=== PATIENT | female | born 1990 | race Caucasian/White ===

== ENCOUNTER 2022-03-14 17:46 | Emergency (ER) | payer BC ==
[~2022-03-14] VITALS: Ht 162.6 cm; Wt 87.1 kg
[2022-03-14 18:16] VITALS: BP_SYST 146
--- NOTE | 2022-03-14 20:29 | NUR ---
Pt brought by self, A&Ox4, pt presents to ER with mild SOB and back pain,no chest retractions noted, pt denies chest pain at this time, skin pink and warm, cap refill <3, VSS, will cont to monitor.
--- NOTE | 2022-03-14 22:10 | NUR ---
Patient to ER bed 04 to gown for evaluation. Side rails up. Report given to MATTHEW QURESHI
--- NOTE | 2022-03-14 22:15 | NUR ---
LINDA Perales at bedside examining patient.
[2022-03-14 23:57] LABS: EOSINOPHILS # (AUTO) 0.6 K/uL (0.0-0.4); EOSINOPHILS % (AUTO) 8.7 % (0.0-4.0); HEMATOCRIT 37.2 % (36-48); HEMOGLOBIN 12.7 g/dL (12.0-16.0); LYMPHOCYTES # (AUTO) 2.5 K/uL (1.0-5.5); LYMPHOCYTES % (AUTO) 35.5 % (20.5-51.5); MEAN CORPUSCULAR HEMOGLOBIN 29 pg (27-31); MEAN CORPUSCULAR HGB CONC 34 % (32-36); MEAN CORPUSCULAR VOLUME 83 fL (79.0-98.0); MONOCYTES # (AUTO) 2.3 K/uL (0.0-1.0); MONOCYTES % (AUTO) 32.9 % (1.7-9.3); NEUTROPHILS # (AUTO) 1.6 K/uL (1.8-7.7); NEUTROPHILS % (AUTO) 22.9 % (40.0-70.0); PLATELET COUNT (AUTO) 267 K/uL (130-430); RED BLOOD CELL COUNT(AUTO) 4.47 MIL/uL (4.2-6.2); RED CELL DISTRIBUTION WIDTH 13.8 % (9.0-15.0); WHITE BLOOD COUNT (AUTO) 7.1 K/uL (4.8-10.8)
[2022-03-14 23:59] LABS: ANION GAP 14 (5-15); CALCIUM 9.4 mg/dL (8.4-11.0); CHLORIDE 103 mmol/L (98-107); CREATININE 0.68 mg/dL (0.55-1.30); GLUCOSE 84 mg/dL (70-99); POTASSIUM 3.4 mmol/L (3.5-5.1); SODIUM SERUM 137 mmol/L (136-145); UREA NITROGEN, BLOOD 15 mg/dL (8-21)
[2022-03-15 00:08] LABS: GFR AFRICAN AMERICAN 128 mL/min (>90)
[2022-03-15 00:13] LABS: ALANINE AMINOTRANSFERASE 25 U/L (12-78); ASPARTATE AMINOTRANSFERASE 16 U/L (10-37); HCG,QUANTITATIVE 0 mIU/ML (0-6); TOTAL BILIRUBIN < 0.1 mg/dL (0.0-1.0)
[2022-03-15 02:47] VITALS: BP_SYST 130
--- NOTE | 2022-03-15 02:52 | NUR ---
Patient given written and verbal discharge instructions and verbalizes understanding. ER MD discussed with patient the results and treatment provided. Patient in stable condition. ID arm band removed. Rx of given. Patient educated on pain management and to follow up with PMD. Opportunity for questions provided and answered. Medication side effect fact sheet provided.
== END 2022-03-15 02:48 | disposition home or self-care (01) ==
LOC: SED 17:46
DX: R06.02 Shortness of breath (principal); R07.89 Other chest pain
CPT/HCPCS: 36415; 71045; 80053; 81002; 83880; 84484; 84702; 85025; 93005; 99285